=== PATIENT | female | born 1970 | race Caucasian/White ===

== ENCOUNTER 2020-01-23 09:21 | Outpatient (REF) | payer MEDICAID, SELFPAY ==
[2020-01-23 10:10] LABS: MANUAL DIFF FLAG NO
[2020-01-23 10:17] LABS: Basophils Percent Auto 0.4 % (0-2); Eosinophils Absolute Auto 0.2 X10*3/uL (0.0-0.4); Eosinophils Percent Auto 1.9 % (0-4); Hematocrit 42.5 % (37-47); Hemoglobin 13.5 g/dl (12.0-16.0); Imm Gran Abs Auto 0.03 X10*3/uL (0.00-0.03); Imm Gran Pct Auto 0.3 % (0.0-0.4); Lymphocytes Percent Auto 33.3 % (20-40); Mean Corpuscular HGB Conc 31.8 g/dl (31.0-35.0); Mean Corpuscular Hemoglobin 29.3 pg (27.0-33.0); Mean Corpuscular Volume 92.2 fL (80-98); Mean Platelet Volume 9.9 fL (9.4-12.3); Monocytes Absolute Auto 0.5 X10*3/uL (0.1-1.2); Monocytes Percent Auto 5.9 % (2-11); Neutrophils Absolute Auto 5.2 X10*3/uL (2.0-8.3); Neutrophils Percent Auto 58.2 % (45-73); Platelet Count 337 X10*3/uL (160-400); Red Blood Count 4.61 X10*6/uL (4.20-5.50); Red Cell Distribution Width 13.6 % (11.0-16.0); White Blood Count 8.9 X10*3/uL (4.8-10.8)
[2020-01-23 10:59] LABS: Alanine Aminotransferase 31 U/L (0-31); Albumin Level 4.3 g/dL (3.5-5.0); Alkaline Phosphatase 127 U/L (39-117); Anion Gap 14 (12-20); Aspartate Amino Transferase 16 U/L (5-31); Bilirubin Total 0.4 mg/dL (0.0-1.0); Blood Urea Nitrogen 16 mg/dL (9-16); Calcium 9.2 mg/dL (8.4-10.2); Carbon Dioxide 26 mmol/L (22-29); Chloride 104 mmol/L (96-108); Cholesterol 169 mg/dL; Estimated Glomerular Filt Rate > 60; Glucose Random 82 mg/dL (60-115); HDL Cholesterol 57 mg/dL; LDL Cholesterol Calculated 98 mg/dl; Potassium 4.5 mmol/l (3.3-5.1); Sodium 139 mmol/L (135-145); Total Protein 7.6 g/dL (6.5-8.0); Triglycerides 74 mg/dL
== END 2020-01-23 09:22 | disposition home or self-care (01) ==
LOC: HO.LAB 09:21
PROVIDERS: PCP Internal Medicine; Visit Provider Internal Medicine
DX: Z00.00 Encounter for general adult medical examination without abnormal findings (principal); L30.0 Nummular dermatitis; M25.511 Pain in right shoulder; Z68.41 Body mass index [BMI] 40.0-44.9, adult
CPT/HCPCS: 36415; 80053; 80061; 85025

== ENCOUNTER 2020-03-13 08:24 | Outpatient (REF) | payer MEDICAID, SELFPAY ==
--- NOTE | 2020-03-13 08:30 | MM_ITS ---
EXAMINATION: MM SCREENING DIGITAL BREAST TOMOSYNTHESIS, BILATERAL CLINICAL INFORMATION: Screening. Asymptomatic. The lifetime risk of breast cancer based on the Tyrer-Cuzick Model is 10%. COMPARISON: Mammography: 01/30/2019, 09/08/2017 (new baseline). TECHNIQUE: Digital breast tomosynthesis is performed in both the craniocaudal and mediolateral oblique views along with computer-aided detection (CAD). Synthesized 2D images are generated from the tomosynthesis. FINDINGS: There are scattered areas of fibroglandular density (ACR BI-RADS breast composition Category b). Breast tissue composition borders on heterogeneously dense. Asymmetric tissue posterior outer right breast is stable from prior exams. Neither breast shows developing density or significant mass or architectural abnormality. No abnormal calcifications. The axilla and skin contours are unremarkable. MM/MM tomosynthesis screening BI IMPRESSION: No significant changes from prior exams. ASSESSMENT: BI-RADS 2: Benign RECOMMENDATION: Routine annual mammography screening. This patient's information was entered into a reminder system with a target due date for their next mammogram.
== END 2020-03-13 08:25 | disposition home or self-care (01) ==
LOC: HO.MAMMO 08:24
PROVIDERS: PCP Internal Medicine; Visit Provider Internal Medicine
DX: Z12.31 Encounter for screening mammogram for malignant neoplasm of breast (principal)
CPT/HCPCS: 77063; 77067

== ENCOUNTER 2021-01-15 11:17 | Outpatient (REF) | payer MEDICAID, SELFPAY ==
[2021-01-15 13:58] LABS: MANUAL DIFF FLAG NO
[2021-01-15 14:05] LABS: Basophils Percent Auto 0.4 % (0-2); Eosinophils Absolute Auto 0.1 X10*3/uL (0.0-0.4); Hematocrit 37.2 % (37.0-47.0); Hemoglobin 12.2 g/dl (12.0-16.0); Imm Gran Abs Auto 0.02 X10*3/uL (0.00-0.03); Imm Gran Pct Auto 0.3 % (0.0-0.4); Lymphocytes Absolute Auto 1.9 X10*3/uL (1.2-4.9); Lymphocytes Percent Auto 24.3 % (20-40); Mean Corpuscular HGB Conc 32.8 g/dl (31.0-35.0); Mean Corpuscular Volume 91.6 fL (80.0-98.0); Mean Platelet Volume 10.8 fL (9.4-12.3); Monocytes Absolute Auto 0.5 X10*3/uL (0.1-1.2); Monocytes Percent Auto 5.6 % (2-11); Neutrophils Absolute Auto 5.5 x10*3/uL (2.0-8.3); Neutrophils Percent Auto 68.4 % (45-73); Platelet Count 254 X10*3/uL (160-400); Red Blood Count 4.06 X10*6/uL (4.20-5.50); Red Cell Distribution Width 13.8 % (11.0-16.0)
[2021-01-15 14:22] LABS: Alanine Aminotransferase 22 U/L (0-31); Albumin Level 4.1 g/dL (3.5-5.0); Alkaline Phosphatase 95 U/L (39-117); Anion Gap 11 (12-20); Aspartate Amino Transferase 13 U/L (5-31); Bilirubin Total 0.5 mg/dL (0.0-1.0); Blood Urea Nitrogen 9 mg/dL (9-16); Calcium 9.3 mg/dL (8.4-10.2); Carbon Dioxide 26 mmol/L (22-29); Chloride 106 mmol/L (96-108); Cholesterol 185 mg/dL; Estimated Glomerular Filt Rate > 60; Glucose Fasting 88 mg/dL (60-99); HDL Cholesterol 59 mg/dL; LDL Cholesterol Calculated 112 mg/dl; Potassium 3.8 mmol/L (3.3-5.1); Sodium 139 mmol/L (135-145); Triglycerides 73 mg/dL
== END 2021-01-15 11:18 | disposition home or self-care (01) ==
LOC: HO.10HDL 11:17
PROVIDERS: Visit Provider Internal Medicine
DX: Z00.00 Encounter for general adult medical examination without abnormal findings (principal); F43.12 Post-traumatic stress disorder, chronic; I10 Essential (primary) hypertension
CPT/HCPCS: 36415; 80053; 80061; 85025

== ENCOUNTER 2021-04-06 10:29 | Outpatient (REF) | payer MEDICAID, SELFPAY ==
--- NOTE | ~2021-04-06 | MM_ITS ---
EXAMINATION: MM SCREENING DIGITAL BREAST TOMOSYNTHESIS, BILATERAL CLINICAL INFORMATION: Screening. Asymptomatic. The lifetime risk of breast cancer based on the Tyrer-Cuzick Model is 11%. COMPARISON: Mammography: 03/13/2020, 01/30/2019, 09/08/2017 (new baseline) TECHNIQUE: Digital breast tomosynthesis is performed in both the craniocaudal and mediolateral oblique views along with computer-aided detection (CAD). Synthesized 2D images are generated from the tomosynthesis. FINDINGS: There are scattered areas of fibroglandular density (ACR BI-RADS breast composition Category b). There are no significant masses, abnormal calcifications, or other abnormalities. Breast tissue composition borders on heterogeneously dense. There is no developing density or interval architectural changes. Parenchymal pattern is similar to prior studies. MM/MM tomosynthesis screening BI IMPRESSION: No mammographic evidence of malignancy. ASSESSMENT: BI-RADS 1: Negative RECOMMENDATION: Routine annual mammography screening. This patient's information was entered into a reminder system with a target due date for their next mammogram.
== END 2021-04-06 10:30 | disposition home or self-care (01) ==
LOC: HO.MAMMO 10:29
PROVIDERS: PCP Internal Medicine; Visit Provider Internal Medicine
DX: Z12.31 Encounter for screening mammogram for malignant neoplasm of breast (principal)
CPT/HCPCS: 77063; 77067

== ENCOUNTER 2021-07-15 11:26 | Outpatient (REF) | payer MEDICAID, SELFPAY ==
[2021-07-15 13:35] LABS: Alanine Aminotransferase 21 U/L (0-31); Alkaline Phosphatase 85 U/L (39-117); Anion Gap 10 (12-20); Aspartate Amino Transferase 15 U/L (5-31); Bilirubin Total 0.5 mg/dL (0.0-1.0); Blood Urea Nitrogen 8 mg/dL (9-16); Calcium 9.1 mg/dL (8.4-10.2); Carbon Dioxide 25 mmol/L (22-29); Chloride 110 mmol/L (96-108); Estimated Glomerular Filt Rate > 60; Glucose Random 94 mg/dL (60-115); Potassium 4.1 mmol/L (3.3-5.1); Sodium 141 mmol/L (135-145); Total Protein 6.6 g/dL (6.5-8.0)
== END 2021-07-15 11:27 | disposition home or self-care (01) ==
LOC: HO.10HDL 11:26
PROVIDERS: Visit Provider Internal Medicine
DX: I10 Essential (primary) hypertension (principal); F43.12 Post-traumatic stress disorder, chronic
CPT/HCPCS: 36415; 80053

== ENCOUNTER 2022-01-14 09:47 | Outpatient (REF) | payer MEDICAID, SELFPAY ==
[2022-01-14 10:31] LABS: MANUAL DIFF FLAG NO
[2022-01-14 10:45] LABS: Basophils Percent Auto 0.3 % (0-2); Eosinophils Absolute Auto 0.1 X10*3/uL (0.0-0.4); Eosinophils Percent Auto 1.2 % (0-4); Hematocrit 37.7 % (37.0-47.0); Hemoglobin 12.3 g/dl (12.0-16.0); Imm Gran Abs Auto 0.02 X10*3/uL (0.00-0.03); Imm Gran Pct Auto 0.3 % (0.0-0.4); Lymphocytes Absolute Auto 2.3 X10*3/uL (1.2-4.9); Lymphocytes Percent Auto 29.6 % (20-40); Mean Corpuscular HGB Conc 32.6 g/dl (31.0-35.0); Mean Corpuscular Hemoglobin 30.1 pg (27.0-33.0); Mean Corpuscular Volume 92.2 fL (80.0-98.0); Mean Platelet Volume 10.1 fL (9.4-12.3); Monocytes Absolute Auto 0.5 X10*3/uL (0.1-1.2); Monocytes Percent Auto 6.2 % (2-11); Neutrophils Absolute Auto 4.7 x10*3/uL (2.0-8.3); Neutrophils Percent Auto 62.4 % (45-73); Platelet Count 277 X10*3/uL (160-400); Red Blood Count 4.09 X10*6/uL (4.20-5.50); Red Cell Distribution Width 13.3 % (11.0-16.0); White Blood Count 7.6 X10*3/uL (4.8-10.8)
[2022-01-14 11:23] LABS: Alanine Aminotransferase 20 U/L (0-31); Albumin Level 4.1 g/dL (3.5-5.0); Alkaline Phosphatase 104 U/L (39-117); Anion Gap 15 (12-20); Aspartate Amino Transferase 15 U/L (5-31); Bilirubin Total 0.4 mg/dL (0.0-1.0); Blood Urea Nitrogen 17 mg/dL (9-16); Calcium 8.9 mg/dL (8.4-10.2); Carbon Dioxide 26 mmol/L (22-29); Chloride 106 mmol/L (96-108); Cholesterol 166 mg/dL; Estimated Glomerular Filt Rate > 60; Glucose Fasting 78 mg/dL (60-99); HDL Cholesterol 56 mg/dL; LDL Cholesterol Calculated 96 mg/dl; Potassium 4.2 mmol/L (3.3-5.1); Sodium 143 mmol/L (135-145); Total Protein 7.2 g/dL (6.5-8.0); Triglycerides 70 mg/dL
[2022-01-14 11:29] LABS: Thyroid Stimulating Hormone 4.14 uIU/mL (0.32-4.0)
== END 2022-01-14 09:48 | disposition home or self-care (01) ==
LOC: HO.10HDL 09:47
PROVIDERS: Visit Provider Internal Medicine
DX: Z00.00 Encounter for general adult medical examination without abnormal findings (principal); M22.2X2 Patellofemoral disorders, left knee; I10 Essential (primary) hypertension; F43.12 Post-traumatic stress disorder, chronic
CPT/HCPCS: 36415; 80053; 80061; 84443; 85025

== ENCOUNTER 2022-05-10 14:00 | Outpatient (RCR) | payer MEDICAID, SELFPAY | END 2022-06-08 09:33 | disposition home or self-care (01) | LOC: HO.PT 14:00 | PROVIDERS: PCP Internal Medicine; Visit Provider Internal Medicine | DX: M22.2X2 Patellofemoral disorders, left knee (principal) | CPT/HCPCS: 97110; 97140; 97161 ==

== ENCOUNTER 2024-01-16 11:01 | Outpatient (REF) | payer MEDICAID, SELFPAY ==
[2024-01-16 13:07] LABS: MANUAL DIFF FLAG NO
[2024-01-16 13:29] LABS: Basophils Percent Auto 0.4 % (0-2); Eosinophils Absolute Auto 0.1 X10*3/uL (0.0-0.4); Eosinophils Percent Auto 1.8 % (0-4); Hematocrit 40.5 % (37.0-47.0); Hemoglobin 12.8 g/dl (12.0-16.0); Imm Gran Abs Auto 0.02 X10*3/uL (0.00-0.03); Imm Gran Pct Auto 0.3 % (0.0-0.4); Lymphocytes Absolute Auto 2.3 X10*3/uL (1.2-4.9); Lymphocytes Percent Auto 31.9 % (20-40); Mean Corpuscular HGB Conc 31.6 g/dl (31.0-35.0); Mean Corpuscular Hemoglobin 29.4 pg (27.0-33.0); Mean Corpuscular Volume 93.1 fL (80.0-98.0); Mean Platelet Volume 10.5 fL (9.4-12.3); Monocytes Absolute Auto 0.4 X10*3/uL (0.1-1.2); Monocytes Percent Auto 6.1 % (2-11); Neutrophils Absolute Auto 4.3 x10*3/uL (2.0-8.3); Neutrophils Percent Auto 59.5 % (45-73); Platelet Count 277 X10*3/uL (160-400); Red Blood Count 4.35 X10*6/uL (4.20-5.50); Red Cell Distribution Width 13.9 % (11.0-16.0); White Blood Count 7.3 X10*3/uL (4.8-10.8)
[2024-01-16 13:58] LABS: Alanine Aminotransferase 33 U/L (0-31); Alkaline Phosphatase 96 U/L (39-117); Anion Gap 9 (12-20); Aspartate Amino Transferase 22 U/L (5-31); Bilirubin Total 0.3 mg/dL (0.0-1.0); Blood Urea Nitrogen 10 mg/dL (9-16); Calcium 8.8 mg/dL (8.4-10.2); Carbon Dioxide 25 mmol/L (22-29); Chloride 112 mmol/L (96-108); Cholesterol 156 mg/dL (<200); Estimated Glomerular Filt Rate > 60; Glucose Random 91 mg/dL (60-115); HDL Cholesterol 55 mg/dL (>40); LDL Cholesterol Calculated 87 mg/dL (<100); Potassium 3.9 mmol/L (3.3-5.1); Sodium 142 mmol/L (135-145); Total Protein 7.2 g/dL (6.5-8.0); Triglycerides 72 mg/dL (<150)
[2024-01-16 14:07] LABS: Thyroid Stimulating Hormone 2.64 uIU/mL (0.32-4.0)
== END 2024-01-16 11:02 | disposition home or self-care (01) ==
LOC: HO.10HDL 11:01
PROVIDERS: Visit Provider Internal Medicine
DX: Z00.01 Encounter for general adult medical examination with abnormal findings (principal); I10 Essential (primary) hypertension; F43.12 Post-traumatic stress disorder, chronic; E78.00 Pure hypercholesterolemia, unspecified; E03.9 Hypothyroidism, unspecified
CPT/HCPCS: 36415; 80053; 80061; 84443; 85025

== ENCOUNTER 2024-02-17 09:47 | Outpatient (REF) | payer MEDICAID, SELFPAY | END 2024-02-17 09:48 | disposition home or self-care (01) | LOC: HO.MAMMO 09:47 | PROVIDERS: PCP Internal Medicine; Visit Provider Internal Medicine | DX: Z12.31 Encounter for screening mammogram for malignant neoplasm of breast (principal) | CPT/HCPCS: 77063; 77067 ==

== ENCOUNTER → 2024-02-17 10:15 | Outpatient (BNV) | payer MEDICAID, SELFPAY | PROVIDERS: PCP Internal Medicine; Visit Provider Internal Medicine | DX: Z12.31 Encounter for screening mammogram for malignant neoplasm of breast (principal) | CPT/HCPCS: 77063; 77067 ==

== ENCOUNTER 2024-07-02 11:46 | Day surgery (SDC) | payer MEDICAID, SELFPAY ==
--- OUTSIDE RECORDS SUMMARY | 2024-06-14 14:16 | XMS_ITS | Patient Health Record ---
Author Organization [facility] Address [address] [place] [address] Care Team Providers Care Manager Photo Name Role Phone Mary Stephenson Primary Care Provider Unavailab Brett Brewer Unavailable [phone] Allergies No Known Allergies Reason For Referral Referring Provider First Name Mary Referring Provider Last Name Sachin Referring Provider Speciality Internal M edicine Referred Organization [facility] Referred Provider Brett Rider Referred Address [address] [place] [address],[address],[place], [place],[address], Referred Provider Specialty Gastroentero logy Referral Priority Routine Medications Medication SIG (Take, Route, Frequency, Duration) Notes Start Date End Date Status Naproxen 500 MG 1 tablet with food o r milk as needed Orally every 12 hrs Active Lisinopril-hydroCHLOROthia zide 20-25 MG 1 tablet Orally Once a day Active Mirtazapine 15 MG 1 tablet at bedtime Orally Once a day Active Senna Plus 8.6-50 MG 1 tablet as needed Orally Twice a day Active cloNIDine 0.2 MG/24HR 1 patch to skin Transdermal Active Dulcolax 5 MG take 2 tablets orall y at 3:00 p.m. and 7:00 p.m. the day before the procedure Orally 2 pills at 3:00 p.m. and 7:00 p.m. the day before the procedure for 1 days 06/12/2024 Active risperiDONE 2 MG 1 tablet Orally Once a day Active MiraLax (colon prep) 17 GM/SCOOP 1 238 Gm bottle mixed with Gatorade or Crystal Light orally begin at 5:00 p.m. the day before the procedure for 1 days 06/13/2024 Active Venlafaxine HCl ER 150 MG 1 capsule with food Orally Once a day Active QUEtiapine Fumarate 100 MG 1 tablet Orally Once a day Active Social History Tobacco Use: Social History Observation Description Date Details (start date - stop date) Never Smoker NA - NA Tobacco Control (Standard) Question Answer Notes Tobacco use: Nonsmoker AUDIT-C (Standard) Question Answer Notes Did you have a drink contain ing alcohol in the past year? Yes How often did you have a dri nk containing alcohol in the past year? Monthly or less (1 point) How many drinks did you have on a typical day when you were drinking in the past year? 1 or 2 drinks (0 point) How often did you have six o r more drinks on one occasion in the past year? Never (0 point) Points 1 Interpretation Negative Section Notes: Nonsmoker; no sig alcohol Vital Signs Blood pressure diastolic 11 mm Hg 06/08/2024 Height 62 in 06/08/2024 Blood pressure systolic 111 mm Hg 06/08/2024 Weight 226 lbs 06/08/2024 BMI 41.33 kg/m2 06/08/2024 Procedures Procedure Date Ordered Date Performed Result Body Sit e COLONOSCOPY 06/08/2024 N/A Encounters Encounter Location Date Provider Diagnosis [facility] [address] [place] [phone] 06/08/2024 Brett Rider Colon cancer screeni ng Z12.11 and Preprocedural examination Z01.818 [facility] [address] [place] [phone] 01/19/2024 Brett Rider [facility] [address] [place] [phone] 06/08/2024 Brett Rider Assessments Encounter Date Diagnosis (ICD Code) Assessment Notes Treatment Notes Treatment Clinical Notes Section Notes 06/08/2024 Colon cancer screening (ICD-10 - Z12.11) Overall, Narciso appears quite well. Given her age, good clinical appearance, and never having had a colonoscopy, I did recommend a colonoscopy for screening purposes. We did review the rationale for this in regard to colon cancer prevention. Full consent has been taken for this, including risks of bleeding and perforation. The procedure will be done with monitored anesthesia care. Narciso and Jessica were comfortable with this plan. Thank you again for allowing me to participate in Igor's care. I shall continue to keep you advised of her progress. 06/08/2024 Preprocedural examination (ICD-10 - Z01.818) Overall, Narciso appears quite well. Given her age, good clinical appearance, and never having had a colonoscopy, I did recommend a colonoscopy for screening purposes. We did review the rationale for this in regard to colon cancer prevention. Full consent has been taken for this, including risks of bleeding and perforation. The procedure will be done with monitored anesthesia care. Narciso and Jessica were comfortable with this plan. Thank you again for allowing me to participate in Igor's care. I shall continue to keep you advised of her progress. Plan Of Treatment Pending Test Test Name Order Date COLONOSCOPY 06/08/2024 Next Appt Details Provider Name:Brett Rider , 07/02/2024 02:20:00 PM, [address] [place] [address], [phone], Provider Name:Brett Rider , 09/14/2024 11:30:00 AM, [address] [place] [address], [phone], Insurance Providers Payer Name Payer Address Payer Phone Subscriber Number Group Number Insured Name Patient Relationship to Insured Coverage Start Date Coverage End Date MEDICA[employer] OF [email or web address] [address] [place] [id number] NARCISO LUA Self - patient is the insured Medical (General) History Medical History History ICD Code Hypertension Anxiety Depression Denies [place],DM,CVA,Lung disease,renal dise ase Surgical History Surgery Date(Month/Year) Benign breast lump
--- OUTSIDE RECORDS SUMMARY | 2024-06-14 14:16 | XMS_ITS ---
Author Organization [facility] Address [address] [place] [phone] Care Team Providers Care Roll Line Operator Name Role Phone MingMary tavares Primary Care Provider Unavailab Brett Brewer [phone] Encounters Encounter Location Date Provider Diagnosis [facility] [address] [place] [address] 01/19/2024 Brett Rider Plan Of Treatment Next Appt Details Provider Name:Brett Rider , 07/02/2024 02:20:00 PM, [address] [place] [address], [phone], Provider Name:Brett Rider , 09/14/2024 11:30:00 AM, [address] [place] [address], [phone], Progress Notes * DERRICK GUZMANEDOB:[birth year] (53 yo F)Acc No.[id number]:01/19/2024 Patient:?JEANNINE GUZMAN :1970???Age:53 Y???Sex:Female Address:[address] [place] [address] [place] [address], [place] [address] * true * Date:? Generated for Vikkii roxanne/Zoltan/eTransmitting on:?06/14/2024 02:16 PM EDT
--- OUTSIDE RECORDS SUMMARY | 2024-06-14 14:16 | XMS_ITS ---
Author Organization [facility] Address [address] [place] [address] Care Team Providers Care Verification Engineer Name Role Phone Mary Stephenson Primary Care Provider Brett Murray Unavailable [phone] Allergies No Known Allergies REASON FOR VISIT Patient presents today for a colon screening Medications Medication SIG (Take, Route, Frequency, Duration) Notes Start Date End Date Status Naproxen 500 MG 1 tablet with food o r milk as needed Orally every 12 hrs Active Mirtazapine 15 MG 1 tablet at bedtime Orally Once a day Active Senna Plus 8.6-50 MG 1 tablet as needed Orally Twice a day Active cloNIDine 0.2 MG/24HR 1 patch to skin Transdermal Active risperiDONE 2 MG 1 tablet Orally Once a day Active Lisinopril-hydroCHLOROthia zide 20-25 MG 1 tablet Orally Once a day Active Venlafaxine HCl ER 150 MG 1 [...] no sig alcohol Vital Signs Blood pressure systolic 111 mm Hg 06/09/19 25 Blood pressure diastolic 11 mm Hg 025 Height 62 in 06/08/2024 Weight 226 lbs 06/08/2024 BMI 41.33 kg/m2 06/08/2024 Procedures Procedure Date Ordered Date Performed Result Body Sit e COLONOSCOPY 06/08/2024 N/A Encounters Encounter Location Date Provider Diagnosis [facility] [address] [place] [address] 06/08/2024 Brett Rider Colon cancer screeni ng Z12.11 and Preprocedural examination Z01.818 Assessments Encounter Date Diagnosis (ICD Code) Assessment [...] will be done with monitored anesthesia care. Florindabilly and Jessica were comfortable with this plan. Thank you again for allowing me to participate in Igor's care. I shall continue to keep you advised of her progress. Plan Of Treatment Pending Test Test Name Order Date COLONOSCOPY 06/08/2024 Next Appt Details Provider Name:Brett Rider , 07/02/2024 02:20:00 PM, [address] [place] [address] , [place], [place], [phone], Provider Name:Brett Gonzáles Rider , 09/14/2024 11:30:00 AM, [address] [facility] , [place], [place], [phone], Progress Notes * DERRICK LUAEDOB:1970 (53 yo F)Acc No.[id number]:06/08/2024 Progress Notes Patient:?NARCISO LUA Provider:?Brett Rider MD :1970???Age:53 Y???Sex:Female D ate:06/08/2024 Address:[address] [place], [place] [phone] Pcp:Mary Stephenson Subjective: * Chief Complaints: * ???1. Patient presents today for a colon screening. * HPI: ???incontinence:? I saw Narciso in the office today for evaluation of colorectal cancer screening. She was accompanied by her , Jessica, who helped her with interpreting. As you know, Narciso is a 53-year-old female who presently feels well. She enjoys a good appetite, without any significant heartburn or dysphagia. Her bowel movements have been fairly regular and without any signs of bleeding. She denies any abdominal pain, jaundice, nor unintentional weight loss. She denies any known family history of colorectal cancer. She has never had a colonoscopy. Laboratories in January 2024 revealed a normal CBC, chemistries, renal function, and LFTs. * Medical History:?Hypertensio n, Anxiety, Depression, Denies [place],DM,CVA,Lung disease,renal disease. * Surgical History:?Benign olvin ast lump . * Family History:?Father: viral butt?Mother: alive.? brother and father? ?colon polyps. * Social History:?Tobacco Use:?Tobacco Control (Standard)?Tobacco use:?Nonsmoker.?Miscellaneous:?Marital status: . Occupation: retired. ???Drug/Alcohol:?AUDIT-C (Standard)?Did you have a drink containing alcohol in the past year??Yes,?How often did you have a drink containing alcohol in the past year??Monthly or less (1 point),?How many drinks did you have on a typical day when you were drinking in the past year??1 or 2 drinks (0 point),?How often did you have six or more drinks on one occasion in the past year??Never (0 point),?Points?1,?Interpretation?Negative.?Nonsmoker; no sig alcohol. * Medications:?Taking Lisinopr il-hydroCHLOROthiazide 20-25 MG Tablet 1 tablet Orally Once a day , Taking Naproxen 500 MG Tablet 1 tablet with food or milk as needed Orally every 12 hrs , Taking Senna Plus 8.6-50 MG Tablet 1 tablet as needed Orally Twice a day , Taking Mirtazapine 15 MG Tablet 1 tablet at bedtime Orally Once a day , Taking risperiDONE 2 MG Tablet 1 tablet Orally Once a day , Taking cloNIDine 0.2 MG/24HR Patch Weekly 1 patch to skin Transdermal , Taking Venlafaxine HCl ER 150 MG Capsule Extended Release 24 Hour 1 capsule with food Orally Once a day , Taking QUEtiapine Fumarate 100 MG Tablet 1 tablet Orally Once a day , Medication List reviewed and reconciled with the patient * Allergies:?N.K.D.A. Objective: * Vitals:?Wt: 226 lbs, Ht: 62 in, BMI:41.33Index, BP: 111/11 mm Hg, Ht-cm: 157.48, Wt-k.51. Assessment: * Assessment: 1.?Colon cancer screening - Z12.11 (Primary)???2.?Preprocedural examination - Z01.818??? Overall, Narciso appears qu ite well. Given her age, good clinical appearance, [...] to keep you advised of her progress. Plan: * Treatment: * Procedure Codes:?68194 DIAGN OSTIC COLONOSCOPY * Preventive Medicine:? ??Counseling:?Care goal follow-up plan:?Above Normal BMI Follow-up?Giving encouragement to exercise,?BMI management provided?Yes.? * * The named appointment provid er may or may not be the originator of this progress note, and it is not deemed complete until electronically signed by the appointment provider. Sign off status: Pending * Provider:?Brett Rider MD Date:? 025 Generated for Jose L oliveira/Zoltan/Marc on:?06/14/2024 02:16 PM EDT
--- OUTSIDE RECORDS SUMMARY | 2024-06-14 14:16 | XMS_ITS ---
Author Organization [facility] Address [address] [place] [address] Care Team Providers Care Test Driver Name Role Phone Mary Stephenson Primary Care Provider UnavailBrett Richardson [phone] REASON FOR VISIT script for prep Medications Medication SIG (Take, Route, Frequency, Duration) Notes Start Date End Date Status Dulcolax 5 MG take 2 tablets orall y at 3:00 p.m. and 7:00 p.m. the day before the procedure Orally 2 pills at 3:00 p.m. and 7:00 p.m. the day before the procedure for 1 days 06/12/2024 Active MiraLax (colon prep) 17 GM/SCOOP 1 238 Gm bottle mixed with Gatorade or Crystal Light orally begin at 5:00 p.m. the day before the procedure for 1 days 06/13/2024 Active Encounters Encounter Location Date Provider Diagnosis [facility] [address] [address] 06/08/2024 Brett Rider Plan Of Treatment Medication Medication Name Sig Start Date Stop Date Notes Dulcolax 5 MG take 2 tablets orall y at 3:00 p.m. and 7:00 p.m. the day before the procedure Orally 2 pills at 3:00 p.m. and 7:00 p.m. the day before the procedure for 1 days 06/12/2024 MiraLax (colon prep) 17 GM/SCOOP 1 238 Gm bottle mixed with Gatorade or Crystal Light orally begin at 5:00 p.m. the day before the procedure for 1 days 06/13/2024 Next Appt Details Provider Name:Brett Rider , 07/02/2024 02:20:00 PM, [address] [place] [address], [phone], Provider Name:Brett Rider , 09/14/2024 11:30:00 AM, [address] [place] [address], [phone], Progress Notes * DERRICK LUAEDOB:1970 (53 yo F)Acc No.[id number]:06/08/2024 Patient:?JEANNINE LUA :1970???Age:53 Y???Sex:Female Address:[address] [place] [address], [address] * Refills? Start Dulcolax Tablet Delayed Release, 5 MG, Orally, 4, take 2 tablets orally at 3:00 p.m. and 7:00 p.m. the day before the procedure, 2 pills at 3:00 p.m. and 7:00 p.m. the day before the procedure, 1 days, Refills=0 Start MiraLax (colon prep) Powder, 17 GM/SCOOP, orally, 1, 1 238 Gm bottle mixed with Gatorade or Crystal Light, begin at 5:00 p.m. the day before the procedure, 1 days, Refills=0 Subjective: * Chief Complaints: * ???Script for prep * Medical History:? * Surgical History:? * Hospitalization/Major Diagno stic Procedure:? * Medications:? Objective: * Vitals:? * Physical Examination:? Assessment: Plan: * Treatment: * Procedure Codes:? * true * Date:? Generated for Jose L oliveira/Zoltan/Marc on:?06/14/2024 02:16 PM EDT
--- NOTE | 2024-06-29 09:37 | P.CONAN_ITS ---
Documented by User: Loulou Talley NP 06/29/24 09:37 HPI - Anesthesia Eval Consult details Narrative: 53yo F for Colonoscopy [facility] Past Medical History Medical History (Updated 06/28/24 @ 14:59 by Heidi Kline RN) HTN (hypertension) Surgical History Surgical History (Updated 06/28/24 @ 14:59 by Heidi Kline RN) Surgical history unknown Social History Social History Patient Tobacco Use Status: Never used Tobacco Second Hand Smoke Exposure: No Use of substances other than those prescribed or required for medical reasons: No Have you been hit, kicked, punched, or otherwise hurt by someone within the past year? If so, by whom?: No Are you DNR?: No Advance Directives: No Advance Directives Information Provided: Yes Advance Directives on File: No Patient : No : No Poor oral hygiene: No Meds Allergies Allergy/AdvReac Type Severity Reaction Status Date / Time No Known Allergies Allergy Unverified 11/22/19 16:27 [No Known Allergies*] Home Medications ?Medication ?Instructions ?Recorded ?Confirmed ?Last Taken ?Type lisinopril 20 1 tab PO DAILY 06/28/24 06/28/24 Unknown History mg-hydrochlorothiazide 25 mg tablet naproxen 500 mg tablet 500 mg PO BID PRN knee pain 06/28/24 06/28/24 Unknown History quetiapine 100 mg tablet 100 mg PO BEDTIME 06/28/24 06/28/24 Unknown History risperidone 2 mg tablet 2 mg PO BID 06/28/24 06/28/24 Unknown History venlafaxine 150 mg 150 mg PO DAILY 06/28/24 06/28/24 Unknown History capsule,extended release 24 hr Assessment and Plan Assessment Anesthesia Assessment: Chart Reviewed Documented by User: Darrin Sue MD 07/02/24 13:03 [facility] Past Medical History Medical History (Updated 06/28/24 @ 14:59 by Heidi Kline RN) HTN (hypertension) Family History Family history of problems with anesthesia: No Surgical History Surgical History (Updated 06/28/24 @ 14:59 by Heidi Kline RN) Surgical history unknown History of Problems with Anesthesia: No Social History Social History Patient Tobacco Use Status: Never used Tobacco Second Hand Smoke Exposure: No Use of substances other than those prescribed or required for medical reasons: No Have you been hit, kicked, punched, or otherwise hurt by someone within the past year? If so, by whom?: No Are you DNR?: No Advance Directives: No Advance Directives Information Provided: Yes Advance Directives on File: No Patient : No : No Poor oral hygiene: No Meds Allergies Allergy/AdvReac Type Severity Reaction Status Date / Time No Known Allergies Allergy Unverified 11/22/19 16:27 [No Known Allergies*] Home Medications ?Medication ?Instructions ?Recorded ?Confirmed ?Last Taken ?Type lisinopril 20 1 tab PO DAILY 06/28/24 06/28/24 Unknown History mg-hydrochlorothiazide 25 mg tablet naproxen 500 mg tablet 500 mg PO BID PRN knee pain 06/28/24 06/28/24 Unknown History quetiapine 100 mg tablet 100 mg PO BEDTIME 06/28/24 06/28/24 Unknown History risperidone 2 mg tablet 2 mg PO BID 06/28/24 06/28/24 Unknown History venlafaxine 150 mg 150 mg PO DAILY 06/28/24 06/28/24 Unknown History capsule,extended release 24 hr Exam Airway Mallampati Class: III TM Dist: >3cm Neck ROM: Full Assessment and Plan Assessment Anesthesia Assessment: Anesthesia Plan Discussed Final Anesthetic Review Family History of Problems with Anesthesia: No History of Problems with Anesthesia: No NPO: Yes ASA Class: III Final Preanesthetic Review: No Changes in Pt Med Stat, Meds/Allgs Chart Reviewed, Consent Obtained/Reviewed and Anes Risks/Benef Reviewed Patient Risk: Intermediate Procedure Risk: Low Anesthetic Plan Anesthetic Plan: TIVA Disposition: Standard PACU
[2024-07-02 12:44] VITALS: BMI 41.3
[2024-07-02 12:54] VITALS: BP 138/84; PULSE 108; RESP 16; TEMP 36.3; O2SAT 94
[2024-07-02] MEDS: Lactated Ringers 1,000 ML 100 ML IVCONT (12:59)
--- NOTE | 2024-07-02 14:52 | P.BOP_ITS ---
Brief Operative Note Date of Service: 07/02/24 Pre-op diagnosis: Screening Post-op diagnosis: other (Polyp) Procedure: Colonoscopy to the cecum and TI with bx/removal of polyp Surgeon: Brett Rider MD Anesthesia: MAC Was an Blower And Compressor Assembler used for this Procedure?: No Estimated blood loss (mL): 2.0 Pathology: other (A. Polyp at 12cm) Condition: stable Disposition: PACU
[2024-07-02 14:53] VITALS: BP 102/72; PULSE 109; RESP 16; TEMP 36.4; O2SAT 96
[2024-07-02 15:03] VITALS: BMI 41.3
[2024-07-02 15:08] VITALS: BP 121/78; PULSE 87; RESP 12; O2SAT 100
[2024-07-02 15:22] VITALS: BP 130/80; PULSE 81; RESP 16; TEMP 36.7; O2SAT 100
--- NOTE | 2024-07-02 15:27 | OP_ITS ---
DATE OF SERVICE: 07/02/2024 SURGEON: Brett Rider MD INDICATIONS: The patient presents for evaluation of colorectal cancer screening. Full consent obtained from her for this, including risks of bleeding and perforation. PREOPERATIVE DIAGNOSIS: Colorectal cancer screening. POSTOPERATIVE DIAGNOSIS: PROCEDURE PERFORMED: Colonoscopy to the cecum and terminal ileum with biopsy and removal of polyp. ESTIMATED BLOOD LOSS: COMPLICATIONS: ANESTHESIA: Monitored anesthesia care. ASSISTANTS: SPECIMENS: POSTOPERATIVE DIAGNOSES: Colorectal cancer screening, small colon polyp, mild sigmoid diverticulosis, and small internal hemorrhoids. DESCRIPTION OF PROCEDURE: The patient was placed in left lateral decubitus position. The digital rectal exam revealed no abnormalities. The Olympus video pediatric colonoscope was entered into the rectum and advanced easily to the cecum. Once in the cecum, I did identify a normal-appearing cecal pouch with appendiceal orifice a normal-appearing ileocecal valve. The terminal ileum was cannulated and appeared normal. The scope was withdrawn back in the colon. The entire cecum and ileocecal valve appeared normal. The scope was then slowly withdrawn assessing all mucosal surfaces carefully. Preparation was excellent. The only polyp I visualized was an approximately 3 or 4 mm polyp at 12 cm, which was biopsied and completely removed with cold biopsy forceps. I did not visualize any other polyps, colitis, nor angiodysplasia. There was a mild amount of sigmoid diverticulosis. In the rectum, scope was retroflexed visualizing small internal hemorrhoids, but no other pathology. The rectal mucosa appeared normal. The scope was straightened and withdrawn from the patient. She tolerated the procedure well and was returned to the recovery area in stable condition. IMPRESSION: 1. Small colon polyp. 2. Mild sigmoid diverticulosis. 3. Small internal hemorrhoids. PLAN: The results of the biopsy will be checked. If this is a tubular adenoma, I would recommend a followup coloscopy in 5 years. If it is only hyperplastic, I would recommend a followup coloscopy in 10 years. She will otherwise see me on a p.r.n. basis. Brett Rider MD RMRodolfo/SARINA / [phone]
== END 2024-07-02 16:05 | disposition home or self-care (01) ==
PROVIDERS: PCP Internal Medicine; Visit Provider Internal Medicine
PROC: 0DJD8ZZ Inspection of Lower Intestinal Tract, Via Natural or Artificial Opening Endoscopic (ICD-10-PCS; CPT 45378; principal; 2024-07-02 13:30)
DX: Z12.11 Encounter for screening for malignant neoplasm of colon (principal); K63.5 Polyp of colon; K57.30 Diverticulosis of large intestine without perforation or abscess without bleeding; K64.8 Other hemorrhoids; Z83.719 Family history of colon polyps, unspecified; I10 Essential (primary) hypertension; Z79.899 Other long term (current) drug therapy
CPT/HCPCS: 45380; 88305; J2704

== ENCOUNTER 2024-11-13 08:33 | Outpatient (REF) | payer MEDICAID, SELFPAY ==
--- OUTSIDE RECORDS SUMMARY | 2024-07-02 10:00 | XMS_ITS ---
Author Organization [facility] Address [address] [place] [address] Care Team Providers Care Chuck Splitter Name Role Phone Mary Stephenson Primary Care Provider Unavailab Brett Brewer [phone] REASON FOR VISIT screening colonoscopy Encounters Encounter Location Date Provider Diagnosis [facility] [place] Outpatient [address] [place], [place] [phone] 07/02/2024 Brett Rider Colon cancer scree juancho [...] Of Treatment No Information Progress Notes * THOMAS PADMAJAJOHNDIETEREDOB:[birth year] (54 yo F)Acc No.[id number]:07/02/2024 COLON WITH MAC Patient: JEANNINE ROBERT Provider: Taylor Rider MD :1970 A ge:53 Y S ex:Female Date:07/02/2024 Address:[address] [place] [address] [address] Pcp:Mary Stephenson Subjective: * Chief Complaints: * 1 . Screening colonoscopy. * Medical History: Objective: * Vitals: Assessment: * Assessment: 1. C olon cancer screening - Z12.11 (Primary) 2 . C olon polyps - K63.5? 3. D iverticulosis of large intestine without perforation or abscess without bleeding - K57.30 4 . O ther hemorrhoids - K64.8 Plan: * Treatment: * Procedure Codes: 4 5380 COLONOSCOPY AND BIOPSY, Modifiers: PT * * The named appointment provid er may or may not be the originator of this progress note, and it is not deemed complete until electronically signed by the appointment provider. Sign off status: Pending * Provider: Taylor Rider MD Date: 0 07/02/2024 Generated for Jose L oliveira/Zoltan/Aletaitting on: 0 11/13/2024 09:38 AM EDT
--- OUTSIDE RECORDS SUMMARY | 2024-09-14 06:30 | XMS_ITS ---
Author Organization [facility] Address [address] [place] [address] Care Team Providers Care Instructor Traffic Safety Name Role Phone Mary Stephenson Primary Care Provider Unavailab Brett Brewer [phone] REASON FOR VISIT screening colonoscopy Encounters Encounter Location Date Provider Diagnosis [facility] [place] [address] [place], [place] [phone] 09/14/2024 Brett Rider Plan Of Treatment No Information Progress Notes * DERRICK GUZMANEDOB:[birth year] (54 yo F)Acc No.[id number]:09/14/2024 COLON WITH MAC Patient: JEANNINE ROBERT Provider: Taylor Rider MD :1970 A ge:54 Y S ex:Female Date:09/14/2024 Address:[address] [place] [address] [address] Pcp:Mary Stephenson Subjective: * Chief Complaints: * 1 . Screening colonoscopy. * Medical History: Objective: * Vitals: Assessment: Plan: * Treatment: * * The named appointment provid er may or may not be the originator of this progress note, and it is not deemed complete until electronically signed by the appointment provider. Sign off status: Pending * Provider: Taylor Rider MD Date: 0 09/14/2024 Generated for Vikkii roxanne/Fatoney/eTransmitting on: 11/13/2024 09:38 AM EDT
--- OUTSIDE RECORDS SUMMARY | 2024-11-13 09:38 | XMS_ITS | Patient Health Record ---
Author Organization [facility] Address [address] [facility] [address] [place] [address] Care Team Providers Care Physical Medicine Physician Name Role Phone Natachasravan Mary Primary Care Provider Unavailab Brett Brewer Unavailable [phone] Allergies No Known Allergies Results Component Value Reference Range Notes Pathology (Not yet reviewed by provider) Interpretation: Performing Lab:[facility], [address] [place] [phone] Notes/Report: Reason For Referral Referring Provider First Name Mary Referring Provider Last Name Sachin Referring Provider Speciality Internal M edicine Referred Organization [facility] Referred Provider Brett Rider Referred Address [address] [place] [address],[address],[place], [place],[address], Referred Provider Specialty Gastroentero logy Referral Priority [...] N/A Encounters Encounter Location Date Provider Diagnosis [facility] Outpatient [address] [place] [phone] 07/02/2024 Brett Rider Colon cancer screeni ng Z12.11 ; Colon polyps K63.5 ; Diverticulosis of large intestine without perforation or abscess without bleeding K57.30 and Other hemorrhoids K64.8 [facility] [address] [place] [phone] 06/08/2024 Brett Rider Colon cancer screeni ng Z12.11 and Preprocedural examination Z01.818 [facility] [address] [place] [phone] 01/19/2024 Brett Rider [facility] [address] [place] [phone] 06/08/2024 Brett Rider Assessments Encounter Date Diagnosis (ICD Code) Assessment Notes Treatment Notes Treatment Clinical Notes Section Notes 07/02/2024 Colon cancer screening (ICD-10 - Z12.11) 07/02/2024 Colon polyps (ICD-10 - K63.5) 06/08/2024 Colon cancer screening (ICD-10 - Z12.11) Overall, Narciso appears quite well. Given her age, good clinical appearance, and never having had a colonoscopy, I did recommend a colonoscopy for screening purposes. We did review the rationale for this in regard to colon cancer prevention. Full consent has been obtained for this, including risks of bleeding and perforation. The procedure will be done with monitored anesthesia care. Florindavirgieshameka and Jessica were comfortable with this plan. [...] colon cancer prevention. Full consent has been obtained for this, including risks of bleeding and perforation. The procedure will be done with monitored anesthesia care. Narciso and Jessica were comfortable with this plan. Thank you again for allowing me to participate in Igor's care. I shall continue to keep you advised of her progress. 07/02/2024 Diverticulosis of large intestine without perforation or abscess without bleeding (ICD-10 - K57.30) 07/02/2024 Other hemorrhoids (ICD-10 - K64.8) Plan Of Treatment Pending Test Test Name Order Date COLONOSCOPY 06/08/2024 Pathology 07/02/2024 Insurance Providers Payer Name Payer Address Payer Phone Subscriber Number Group Number Insured Name Patient Relationship to Insured Coverage Start Date Coverage End Date [facility]ICA[facility] OF [facility] [address] [place] [phone] [id number] NARCISO GUZMNA Self - patient is the insured Medical (General) History Medical History History ICD Code Hypertension Anxiety Depression Denies [place],DM,CVA,Lung disease,renal dise ase Surgical History Surgery Date(Month/Year) Benign breast lump
[2024-11-13 10:14] LABS: Alanine Aminotransferase 23 U/L (0-31); Albumin Level 4.2 g/dL (3.5-5.0); Alkaline Phosphatase 114 U/L (39-117); Anion Gap 12 (12-20); Aspartate Amino Transferase 17 U/L (5-31); Blood Urea Nitrogen 19 mg/dL (9-16); Calcium 8.6 mg/dL (8.4-10.2); Carbon Dioxide 25 mmol/L (22-29); Chloride 108 mmol/L (96-108); Estimated Glomerular Filt Rate > 60; Potassium 4.1 mmol/L (3.3-5.1); Sodium 141 mmol/L (135-145); Total Protein 7.4 g/dL (6.5-8.0)
== END 2024-11-13 08:34 | disposition home or self-care (01) ==
LOC: HO.10HDL 08:33
PROVIDERS: Visit Provider Internal Medicine
DX: E03.9 Hypothyroidism, unspecified (principal); E78.00 Pure hypercholesterolemia, unspecified; F43.12 Post-traumatic stress disorder, chronic; I10 Essential (primary) hypertension
CPT/HCPCS: 36415; 80053

== ENCOUNTER 2025-02-22 09:59 | Outpatient (REF) | payer MEDICAID, SELFPAY ==
--- OUTSIDE RECORDS SUMMARY | 2024-07-02 09:00 | XMS_ITS ---
Author Organization [facility] Address [address] [place] [address] Care Team Providers Care Stations Superintendent Name Role Phone Mary Stephenson Primary Care Provider Unavailab Bertt Brewer [phone] REASON FOR VISIT screening colonoscopy Encounters Encounter Location Date Provider Diagnosis [facility] [address] [place] [phone] 07/02/2024 Brett Rider Colon cancer scree juancho Z12.11 ; Colon polyps K63.5 ; Diverticulosis of large intestine without perforation or abscess without bleeding K57.30 and Other hemorrhoids K64.8 Assessments Encounter Date Diagnosis (ICD Code) Assessment Notes Treatment Notes Treatment Clinical Notes Section Notes 07/02/2024 Colon cancer screening (ICD-10 - Z12.11) 07/02/2024 Colon polyps (ICD-10 - K63.5) 07/02/2024 Diverticulosis of large intestine without perforation or abscess without bleeding (ICD-10 - K57.30) 07/02/2024 Other hemorrhoids (ICD-10 - K64.8) Plan Of Treatment No Information Progress Notes * GUZMAN, DERRICKEDOB:[birth year] (54 yo F)Acc No.[id number]:07/02/2024 COLON WITH MAC Patient: JEANNINE ROBERT Provider: Taylor Rider MD :1970 A ge:53 Y S ex:Female Date:07/02/2024 Address:[address] [place] [address] [address] Pcp:Mary Stephenson Subjective: * Chief Complaints: * S creening colonoscopy Assessment: * Assessment: 1. C olon cancer screening - Z12.11 (Primary) 2 . C olon polyps - K63.5? 3. D iverticulosis of large intestine without perforation or abscess without bleeding - K57.30 4 . O ther hemorrhoids - K64.8 Plan: * Procedure Codes: 4 5380 COLONOSCOPY AND BIOPSY, Modifiers: PT Billing Information: * Procedure Codes: 88318 COLONOSCOPY AND BIOPSY. Modifiers: PT * The named appointment provid er may or may not be the originator of this progress note, and it is not deemed complete until electronically signed by the appointment provider. Sign off status: Pending * Provider: Taylor Rider MD Date: 0 07/02/2024 Generated for Jose L oliveira/Zoltan/Aletaitting on: 1 04/25/2024 11:08 AM EST
--- OUTSIDE RECORDS SUMMARY | 2024-09-14 05:30 | XMS_ITS ---
Author Organization [facility] Address [address] [place] [address] Care Team Providers Care Miter Grinder Operator Name Role Phone Mary Stephenson Primary Care Provider Unavailab Brett Brewer [phone] REASON FOR VISIT screening colonoscopy Encounters Encounter Location Date Provider Diagnosis [facility] Outpatient [address] [place], [place] [phone] 09/14/2024 Brett Rider Plan Of Treatment No Information Progress Notes * DERRICK GUZMANEDOB:[birth year] (54 yo F)Acc No.[id number]:09/14/2024 COLON WITH MAC Patient: JEANNINE ROBERT Provider: Taylor Rider MD :1970 A ge:54 Y S ex:Female Date:09/14/2024 Address:[address] [place] [address] [address] Pcp:Mary Stephenson Subjective: * Chief Complaints: * S creening colonoscopy * The named appointment provid er may or may not be the originator of this progress note, and it is not deemed complete until electronically signed by the appointment provider. Sign off status: Pending * Provider: Taylor Rider MD Date: 0 09/14/2024 Generated for Jose L oliveira/Zoltan/Aletaitting on: 1 04/25/2024 11:08 AM EST
--- NOTE | ~2025-02-22 | MM_ITS ---
EXAMINATION: MM SCREENING DIGITAL BREAST TOMOSYNTHESIS, BILATERAL CLINICAL INFORMATION: Screening. Asymptomatic. COMPARISON: Mammography: Comparison is made with available priors TECHNIQUE: Digital breast mammography with tomosynthesis is performed in both the craniocaudal and mediolateral oblique views along with computer-aided detection (CAD). FINDINGS: The breasts are heterogeneously dense, which may obscure small masses. There are no significant masses, abnormal calcifications, or other abnormalities. MM/MM tomosynthesis screening BI IMPRESSION: No mammographic evidence of malignancy. ASSESSMENT: BI-RADS Category 1: Negative RECOMMENDATION: Routine annual mammography screening. 1 year F/U This examination should not preclude the clinical evaluation of a suspicious palpable abnormality. This patient's information was entered into a reminder system with a target due date for their next mammogram. Electronically signed by: Mica Rodriguez DO 02/25/2025 05:49 PM RODOLFO
--- OUTSIDE RECORDS SUMMARY | 2025-02-22 11:09 | XMS_ITS | Patient Health Record ---
Author Organization [facility] Address [address] [place] [address] Care Team Providers Care Upholstered Goods Crafter Name Role Phone Natachasravan Mary Primary Care Provider Unavailab Brett Brewer Unavailable [phone] Allergies No Known Allergies Results Component Value Reference Range Notes Pathology (Not yet reviewed by provider) Interpretation: Performing Lab:[facility], [address] [place] [phone] Notes/Report: Reason For Referral Referring Provider First Name Mary Referring Provider Last Name Sachin Referring Provider Speciality Internal M edicine Referred Organization [facility] Referred Provider Brett Rider Referred Address [address] [place] [address],[address],[place], [place],[address], Referred Provider Specialty Gastroentero logy Referral Priority Routine Medications Medication SIG (Take, Route, Frequency, Duration) Notes Start Date End Date Status Naproxen 500 MG Tablet 1 tablet with diamond d or milk as needed Orally every 12 hrs Active Lisinopril-hydroCHLOROthia zide 20-25 MG Tablet 1 tablet Orally Once a day Active Mirtazapine 15 MG Tablet 1 tablet at bed time Orally Once a day Active Senna Plus 8.6-50 MG Tablet 1 tablet as needed Orally Twice a day Active cloNIDine 0.2 MG/24HR Patch Weekly 1 patch to skin Transdermal Active Dulcolax 5 MG Tablet Delayed Release take 2 tablets orally at 3:00 p.m. and 7:00 p.m. the day before the procedure Orally 2 pills at 3:00 p.m. and 7:00 p.m. the day before the procedure; Duration: 1 days 06/12/2024 Active risperiDONE 2 MG Tablet 1 tablet Orally Once a day Active MiraLax (colon prep) 17 GM/SCOOP Powder 1 238 Gm bottle mixed with Gatorade or Crystal Light orally begin at 5:00 p.m. the day before the procedure; Duration: 1 days 06/13/2024 Active Venlafaxine HCl ER 150 MG Capsule Extended Release 24 Hour 1 capsule with food Orally Once a day Active QUEtiapine Fumarate 100 MG Tablet 1 tablet Orally Once a day A ctive Social History Tobacco Use: Social History Observation Description Date Details (start date - stop date) Never Smoker NA - NA Social History Drug/Alcohol: Social Info Question Answer Notes AUDIT-C (Standard) Did you have a drink containing alcohol in the past year? Yes How often did you have a drink containing alcohol in the past year? Monthly or less (1 point) How many drinks did you have on a typical day when you were drinking in the past year? 1 or 2 drinks (0 point) How often did you have six or more drinks on one occasion in the past year? Never (0 point) Points 1 Interpretation Negative Tobacco Use: Social Info Question Answer Notes Tobacco Control (Standard) Tobacco use: Nonsmoker Additional Details Category Social Info Options Details Miscellaneous: Marital status: Occupation: retired Section Notes: Nonsmoker; no sig alcohol Vital Signs Blood pressure diastolic 11 mm Hg 06/08/2024 Height 62 in 06/08/2024 Blood pressure systolic 111 mm Hg 06/08/2024 Weight 226 lbs 06/08/2024 BMI 41.33 kg/m2 06/08/2024 Procedures Procedure Date Ordered Date Performed Result Body Sit e COLONOSCOPY 06/08/2024 N/A Encounters Encounter Location Date Provider Diagnosis [facility] Outpatient [address] [place], [place] [phone] 07/02/2024 Brett Rider Colon cancer screeni ng Z12.11 ; Colon polyps K63.5 ; Diverticulosis of large intestine without perforation or abscess without bleeding K57.30 and Other hemorrhoids K64.8 [facility] [address] [place] [phone] 06/08/2024 Brett Rider Colon cancer screeni ng Z12.11 and Preprocedural examination Z01.818 [facility] [address] [place] [phone] 06/08/2024 Brett Tereso Assessments Encounter Date Diagnosis (ICD Code) Assessment [...] Start Date Coverage End Date MEDICAID OF [employer] [facility] [address] [place] [phone] [id number] NARCISO GUZMAN Self - patient is the insured Medical (General) History Medical History History ICD Code Hypertension Anxiety Depression Denies CT,DM,CVA,Lung disease,renal dise ase Surgical History Surgery Date(Month/Year) Benign breast lump
== END 2025-02-22 10:00 | disposition home or self-care (01) ==
LOC: HO.MAMMO 09:59
PROVIDERS: PCP Internal Medicine; Visit Provider Internal Medicine
DX: Z12.31 Encounter for screening mammogram for malignant neoplasm of breast (principal)
CPT/HCPCS: 77063; 77067

== ENCOUNTER → 2025-02-22 10:00 | Outpatient (BNV) | payer MEDICAID, SELFPAY | PROVIDERS: PCP Internal Medicine; Visit Provider Internal Medicine | DX: Z12.31 Encounter for screening mammogram for malignant neoplasm of breast (principal) | CPT/HCPCS: 77063; 77067 ==